=== PATIENT | female | born 1975 | race African-American/Black ===

== ENCOUNTER 2020-03-15 13:21 | Emergency (ER) | payer SELFPAY ==
[~2020-03-15] VITALS: Ht 180.3 cm; Wt 77.0 kg
[2020-03-15] MEDS ORDERED: SODIUM CHLORIDE 0.9% 1,000 ML IV ONE (14:30)
[2020-03-15] MEDS ORDERED: LORAZEPAM 2MG/ML CPJ IV ONE (14:45)
[2020-03-15 15:30] VITALS: BP 118/84
[2020-03-15 16:00] LABS: BASOPHILS % 0.7 % (0.0-2.0); EOSINOPHILS % 2.3 % (0.0-5.0); HEMATOCRIT. 39.5 % (36.0-48.0); LYMPHOCYTES % 19.9 % (20.0-50.0); MEAN CORPUSCULAR VOLUME 87.9 fL (81.0-99.0); MEAN PLATELET VOLUME 9.6 fl (7.4-10.4); MONOCYTES % 10.5 % (2.0-8.0); NEUTROPHILS % 66.6 % (40.0-76.0); PLATELET 242 x1000/uL (130-400); RED BLOOD CELL COUNT 4.49 mill/uL (4.2-5.4); RED CELL DISTRIBUTION WIDTH 13.6 % (11.6-14.6)
[2020-03-15 16:13] LABS: CHLORIDE 107 mEq/L (98-107)
[2020-03-15 16:18] LABS: ETHANOL BLOOD < 10 mg/dL
[2020-03-15 16:33] LABS: CARBAMAZEPINE < 0.5 ug/mL (4-12); PHENOBARBITAL < 2.1 ug/mL (15.0-40.0); VALPROIC ACID < 3.0 ug/mL (50-100)
[2020-03-15 17:26] LABS: HCG SCREEN NEGATIVE
== END 2020-03-15 17:11 | disposition left against medical advice (07) ==
LOC: ER 13:26 → EDBD 13:26 → ER 17:11
DX: R56.9 Unspecified convulsions (principal); F17.290 Nicotine dependence, other tobacco product, uncomplicated
CPT/HCPCS: 36415; 70450; 80053; 80156; 80165; 80184; 80185; 80320; 82962; 84703; 85025; 96361; 96374; 99284; J2060; J7030; G0480